=== PATIENT | female | born 1955 | race Caucasian/White ===

== ENCOUNTER → 2018-02-04 11:23 | Outpatient (CLI) | payer MEDICAID, SELFPAY ==
[2018-02-04 16:58] LABS: ALT 74 U/L (12-78); AST 89 U/L (15-37); Albumin 3.9 g/dL (3.4-5.0); Alkaline Phosphatase 71 U/L (46-116); Bilirubin, Direct 0.08 mg/dL (0.00-0.20); Bilirubin, Total 0.3 mg/dL (0.2-1.0); CREATININE 0.93 mg/dL (0.55-1.02); Total Protein 8.7 g/dL (6.4-8.2)
== END ==
PROVIDERS: PCP Family Medicine; Visit Provider Family Medicine
DX: R30.0 Dysuria (principal); I10 Essential (primary) hypertension; B19.20 Unspecified viral hepatitis C without hepatic coma
CPT/HCPCS: 36415; 80076; 81003; 81015; 82565; 87086; 87522

== ENCOUNTER → 2018-02-04 14:50 | Outpatient (REF) | payer MEDICAID, SELFPAY ==
[2018-02-04 20:13] LABS: Bilirubin Negative (Negative); Blood Moderate (Negative); Clarity Cloudy; Glucose Negative (Negative); Ketones Negative (Negative); Leukocyte Esterase Trace (Negative); Nitrite Negative (Negative); Specific Gravity 1.015 (1.005-1.025)
[2018-02-04 20:41] LABS: Bacteria Many HPF (Negative); C & S Indicated? C&S Done As Ordered; Casts Negative LPF (Negative); Crystals Mod Calcium Oxalate HPF (Negative); Epithelial Cells Rare HPF (Negative); Mucus Negative (Negative); Other Cells Few Transitional (Negative); WBC 20-50 HPF (0-5)
== END ==
LOC: NCHCN 14:50
PROVIDERS: PCP Family Medicine; Visit Provider Family Medicine
DX: R30.0 Dysuria (principal)
CPT/HCPCS: 87077; 81003; 81015; 87086; 87186

== ENCOUNTER 2018-10-14 01:39 | Outpatient (CLI) | payer MEDICAID, SELFPAY ==
[2018-10-14 14:28] LABS: ALT 103 U/L (12-78); AST 108 U/L (15-37); Anion Gap 6.7 mmol/L (3-11); BUN 12 mg/dL (7-18); CO2 30.3 mmol/L (21.0-32.0); CREATININE 0.72 mg/dL (0.55-1.02); Calcium 9.2 mg/dL (8.5-10.1); Chloride 97 mmol/L (98-107); Cholesterol 212 mg/dL (50-200); Glucose 106 mg/dL (70-100); HDL Cholesterol 53 mg/dL (40-60); LDL CHOLESTEROL 139 mg/dL (<100); Potassium 3.9 mmol/L (3.5-5.1); Sodium 134 mmol/L (136-145); Triglyceride 81 mg/dL (30-150)
== END 2018-10-14 01:59 ==
PROVIDERS: PCP Family Medicine; Visit Provider Family Medicine
DX: Z13.220 Encounter for screening for lipoid disorders (principal); B19.20 Unspecified viral hepatitis C without hepatic coma; R82.79 Other abnormal findings on microbiological examination of urine; R30.0 Dysuria
CPT/HCPCS: 36415; 80048; 80061; 83721; 84450; 84460; 87086; 87522

== ENCOUNTER 2018-10-14 13:54 | Outpatient (REF) | payer MEDICAID, SELFPAY | END 2018-10-14 14:14 | LOC: LBN 13:54 | PROVIDERS: PCP Family Medicine; Visit Provider Family Medicine | DX: R30.0 Dysuria (principal) | CPT/HCPCS: 87086 ==